=== PATIENT | female | born 1945 | race Caucasian/White ===

== ENCOUNTER 2019-09-12 08:40 | Day surgery (SDC) | payer MEDICARE, MEDICAID ==
[2019-09-12] MEDS ORDERED: Dexamethasone 20 MG/5 ML VIAL ONE (09:43)
[2019-09-12] MEDS ORDERED: Ondansetron PF 4 MG/2 ML Vial ONE (09:43)
[2019-09-12] MEDS ORDERED: Labetalol HCl 100 MG/20 ML VIAL ONE (09:43)
[2019-09-12] MEDS ORDERED: Lidocaine 1% PF 5 ML VIAL ONE (09:43)
[2019-09-12] MEDS ORDERED: Succinylcholine Chloride 20 MG/ML 10 ml SYRINGE FS ONE (09:43)
[2019-09-12] MEDS ORDERED: PROPOFOL 200 MG/20 ML VIAL ONE (09:43)
[2019-09-12 12:41] LABS: Hemoglobin 14.1 g/dL (12.0-16.0)
[2019-09-12 13:00] LABS: Anion Gap 16 mmol/L (10-20); BUN (Urea Nitrogen) 15 mg/dL (9.8-20.1); Calc. Creatinine Clearance 0 mL/min (70-130); Calcium 9.9 mg/dL (7.8-10.44); Carbon Dioxide 24 mmol/L (23-31); Chloride 104 mmol/L (98-107); Estimated GFR-MDRD 29; Glucose 100 mg/dL (83-110); Potassium 4.5 mmol/L (3.5-5.1); Sodium 139 mmol/L (136-145)
[2019-09-12] MEDS ORDERED: Fentanyl 100 MCG/2 ML VIAL ONE (14:05)
[2019-09-12] MEDS ORDERED: Hydrocodone-Acetamin 15 ML UDCUP ONE (16:09)
[2019-09-12] MEDS ORDERED: Bacitracin Zinc Ointment 30 gm TUBE ONE (16:28)
--- NOTE | 2019-09-12 17:34 | EKG ---
Test Reason : PREOP Blood Pressure : / mmHG Vent. Rate : 073 BPM Atrial Rate : 073 BPM P-R Int : 190 ms QRS Dur : 072 ms QT Int : 410 ms P-R-T Axes : 088 079 094 degrees QTc Int : 451 ms Sinus rhythm with Premature atrial complexes Nonspecific ST abnormality Abnormal ECG No previous ECGs available Confirmed by DR. Isela NOGUEIRA ([id number]) on 09/12/2019 5:34:09 PM Referred By: SERG Confirmed By:DR. Isela NOGUEIRA
--- NOTE | 2019-09-13 08:21 | OP ---
DATE OF PROCEDURE: 09/12/2019 PREOPERATIVE DIAGNOSIS: Left tonsil mass. POSTOPERATIVE DIAGNOSIS: Left tonsil. PROCEDURES PERFORMED: 1. Direct laryngoscopy. 2. Left tonsillectomy. PROCEDURE IN DETAIL: After consent was obtained, the patient was identified and brought to the operating room, placed on the operating room table in supine position. General endotracheal anesthesia was obtained with a small endotracheal tube. The patient systematically underwent direct laryngoscopy with examination of oropharynx, oral cavity, hypopharynx, larynx, and esophageal inlet. No abnormalities were obtained except for some firmness in the left tonsil. A Donna-Vinicio mouth gag was then placed and the tonsil was grasped and retracted medially as an anterior pillar incision was made on the left side and the retrotonsillar fascial plane of dissection was established. A hemostatic tonsillectomy was performed with blood vessels that were anticipated, identified, and cauterized as they were encountered. We then awakened the patient, extubated, and took her to the recovery room in stable condition prior to discharge home. Specimen was sent for histologic studies. Job ID: [id number]
== END 2019-09-12 17:50 | disposition home or self-care (01) ==
LOC: SDC 08:40
PROVIDERS: ATTEND Specialist
PROC: 0CJS8ZZ Inspection of Larynx, Via Natural or Artificial Opening Endoscopic (ICD-10-PCS; principal; 2019-09-12)
PROC: 0CTPXZZ Resection of Tonsils, External Approach (ICD-10-PCS; 2019-09-12)
DX: J35.1 Hypertrophy of tonsils (principal); J35.8 Other chronic diseases of tonsils and adenoids; M26.602 Left temporomandibular joint disorder, unspecified; I10 Essential (primary) hypertension; E78.5 Hyperlipidemia, unspecified; I25.10 Atherosclerotic heart disease of native coronary artery without angina pectoris; I25.82 Chronic total occlusion of coronary artery; J43.9 Emphysema, unspecified; F03.90 Unspecified dementia, unspecified severity, without behavioral disturbance, psychotic disturbance, mood disturbance, and anxiety; M19.90 Unspecified osteoarthritis, unspecified site; G89.29 Other chronic pain; M81.0 Age-related osteoporosis without current pathological fracture; F32.9 Major depressive disorder, single episode, unspecified; F41.9 Anxiety disorder, unspecified; Z87.891 Personal history of nicotine dependence; Z79.82 Long term (current) use of aspirin; Z79.899 Other long term (current) drug therapy; Z88.0 Allergy status to penicillin; Z88.1 Allergy status to other antibiotic agents; Z88.8 Allergy status to other drugs, medicaments and biological substances
CPT/HCPCS: 80048; 85014; 85018; 88304; 93005; 93010; J1100; J2001; J2405; J2704; J3010